=== PATIENT | female | born 2000 | race Caucasian/White ===

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

== ENCOUNTER 2021-12-15 07:09 | Day surgery (SDC) | payer BC, OTHER ==
[~2021-12-15] VITALS: Ht 170.2 cm; Wt 67.0 kg
[2021-12-15] MEDS ORDERED: Diflucan100 MG PO (07:53)
--- NOTE | 2021-12-15 08:06 | NUR ---
12/15/21 0806 ESTELA SIMON 0.05MG OF EPI (1MG/1ML) MIXED WITH 10MLS OF BUPIVACAINE 0.5% TO CREATE A LOCAL SOLUTION OF BUPIVACAINE 0.5% WITH EPI 1:200,000. 10MLS OF LOCAL POURED ONTO STERILE FIELD FOR USE DURING CASE.
--- NOTE | 2021-12-15 09:47 | NUR ---
12/15/21 0947 GRANT WILSON [id number] PATIENT COMPLAINS OF ABD PAIN, DESCRIBES ACHY, RATING 6/10. WILL CONTINUE TO MONITOR.
--- NOTE | 2021-12-15 10:36 | NUR ---
12/15/21 1036 GRANT WILSON UMBILICAL AND L ABD INCISIONS WITHOUT DRAINAGE; NO REDNESS/SWELLING. PATIENT VERBALIZES PAIN 4/10 TOLERABLE, STATES DOES NOT WANT FURTHER PAIN MEDICATION AT THIS TIME. PATIENT HAS DIETARY RESTRICTIONS, UNABLE TO PROVIDE SNACK TO PROVIDE PO PAIN MEDS. PATIENT VERBALIZES OK TO GO HOME AND EAT IN ORDER TO TAKE PO PAIN MEDS.
== END 2021-12-15 11:00 | disposition home or self-care (01) ==
LOC: ORSCSDS 07:09
PROVIDERS: Obstetrics & Gynecology
PROC: 0U574ZZ Destruction of Bilateral Fallopian Tubes, Percutaneous Endoscopic Approach (ICD-10-PCS; principal; 2021-12-15 08:30)
DX: Z30.2 Encounter for sterilization (principal); F17.210 Nicotine dependence, cigarettes, uncomplicated
CPT/HCPCS: 88302; A9270; J0171; J0690; J1100; J2250; J2405; J2704; J3010; J7120